=== PATIENT | male | born 2005 | race African-American/Black ===

== ENCOUNTER 2025-06-11 23:17 | Emergency (ER) | payer OTHER ==
[~2025-06-11] VITALS: Ht 175.3 cm; Wt 98.0 kg
[2025-06-11 23:24] VITALS: BP 154/100; PULSE 78; RESP 16; TEMP 97.9; O2SAT 98
[2025-06-12] MEDS: CARBOXYMETHYLCELLULOSE SODIUM 0.4 ML OPHTHALMIC SOLUTION [PF] OD ONE (01:02)
[2025-06-12] MEDS: OLOPATADINE HCL 0.1% 5 ML OPHTHALMIC SOLUTION OD ONE (01:03)
== END 2025-06-12 01:20 | disposition home or self-care (01) ==
LOC: EMS 23:20
DX: H10.11 Acute atopic conjunctivitis, right eye (principal); R68.89 Other general symptoms and signs
CPT/HCPCS: 99283